=== PATIENT | male | born 1975 | race Caucasian/White ===

== ENCOUNTER 2020-04-11 16:23 | Emergency (ER) | payer OTHER ==
[~2020-04-11] VITALS: Ht 172.7 cm; Wt 83.9 kg
[2020-04-11 16:23] VITALS: BP_SYST 151
--- NOTE | 2020-04-11 16:23 | NUR ---
placed in bed 7. triaged at bedside 12 Lead EKG in progress
--- NOTE | 2020-04-11 16:25 | NUR ---
PATIENT BROUGHT IN COMPLAINING OF LEFT CHEST PAIN NON RADIATING AFTER HAVING ARGUMENT WITH DAUGHTER PRIOR TO ARRIVAL. PATIENT DENIES ANY PAIN AT THIS TIME. DENIES ANY MEDICAL HISTORY. NO OTHER COMPLAINTS/INJURIES PER PATIENT OR NTOED. WILL CONTINUE TO MONITOR.
--- NOTE | 2020-04-11 16:30 | NUR ---
ER Dr. SAM at bedside examining patient.
[2020-04-11] MEDS ORDERED: ASPIRIN 325 MG TABLET PO ONE (16:45)
[2020-04-11] MEDS ORDERED: MORPHINE 4 MG/ML INJ. SYRINGE IVP ONE (16:45)
[2020-04-11] MEDS ORDERED: NITROGLYCERIN 1 INCH (GM) OINT. TP ONE (16:45)
[2020-04-11 17:01] LABS: BASOPHILS % (AUTO) 0.6 % (0.0-2.0); EOSINOPHILS # (AUTO) 0.2 K/uL (0.0-0.4); EOSINOPHILS % (AUTO) 4.8 % (0.0-4.0); HEMATOCRIT 43.3 % (36-54); HEMOGLOBIN 14.3 g/dL (14.0-18.0); LYMPHOCYTES # (AUTO) 1.6 K/uL (1.0-5.5); LYMPHOCYTES % (AUTO) 38.2 % (20.5-51.5); MEAN CORPUSCULAR HEMOGLOBIN 31 pg (27-31); MEAN CORPUSCULAR HGB CONC 33 % (32-36); MEAN CORPUSCULAR VOLUME 95 fL (79.0-98.0); MONOCYTES # (AUTO) 0.4 K/uL (0.0-1.0); MONOCYTES % (AUTO) 9.7 % (1.7-9.3); NEUTROPHILS % (AUTO) 46.7 % (40.0-70.0); PLATELET COUNT (AUTO) 191 K/uL (130-430); RED BLOOD CELL COUNT(AUTO) 4.56 MIL/uL (4.2-6.2); WHITE BLOOD COUNT (AUTO) 4.2 K/uL (4.8-10.8)
--- NOTE | 2020-04-11 17:23 | NUR ---
PATIENT RESTING. NO VOICED COMPLAINTS AT THIS TIME
[2020-04-11 17:43] LABS: CALCIUM 8.4 mg/dL (8.4-11.0); CREATININE 1.02 mg/dL (0.55-1.30); POTASSIUM 3.7 mmol/L (3.5-5.1)
[2020-04-11 17:49] LABS: ALBUMIN 3.9 g/dL (3.4-4.8); TOTAL BILIRUBIN 0.3 mg/dL (0.0-1.0)
[2020-04-11 18:23] VITALS: BP_SYST 148
--- NOTE | 2020-04-11 18:23 | NUR ---
Patient given written and verbal discharge instructions and verbalizes understanding. ER MD discussed with patient the results and treatment provided. Patient in stable condition. ID arm band removed. IV catheter removed intact and dressing applied, no active bleeding. NO RX GIVEN Patient educated on pain management and to follow up with PMD. Pain Scale 0/10 Opportunity for questions provided and answered.
== END 2020-04-11 18:23 | disposition home or self-care (01) ==
LOC: SED 16:23
DX: R07.89 Other chest pain (principal)
CPT/HCPCS: 36415; 71045; 80053; 83880; 84484; 85025; 93005; 99285